=== PATIENT | female | born 1975 | race Asian ===

== ENCOUNTER 2022-09-08 09:47 | Emergency (ER) | payer OTHER ==
[~2022-09-08] VITALS: Ht 157.5 cm; Wt 48.1 kg
[2022-09-08 09:58] VITALS: BP 176/98
[2022-09-08] MEDS ORDERED: AMLO-212 PO (10:10)
== END 2022-09-08 10:19 | disposition home or self-care (01) ==
LOC: ER 09:50
DX: I10 Essential (primary) hypertension (principal); H11.32 Conjunctival hemorrhage, left eye; E78.00 Pure hypercholesterolemia, unspecified; Z79.899 Other long term (current) drug therapy